=== PATIENT | female | born 1980 | race Caucasian/White ===

== ENCOUNTER → 2021-11-16 | Outpatient (CLI) | payer BC ==
[2021-11-16 11:17] LABS: HEMOGLOBIN 16.9 gm/dl (12.3-15.3); RED BLOOD COUNT 5.1 M/UL (4.00-5.10); WHITE BLOOD COUNT 8.2 K/UL (4.5-11.0)
[2021-11-18 16:27] LABS: BUN/CREATININE RATIO 19 (0-10)
[2021-11-19 08:14] LABS: CHOLESTEROL, TOTAL 216 mg/dL (100-199); HDL CHOLESTEROL 41 mg/dL (>39); LDL CHOLESTEROL CALC 149 mg/dL (0-99); LDL/HDL RATIO 3.6 ratio (0.0-3.2); T. CHOL/HDL RATIO 5.3 ratio (0.0-4.4); TRIGLYCERIDES 144 mg/dL (0-149)
== END ==
LOC: LAB 10:34
PROVIDERS: Family Medicine
DX: R60.9 Edema, unspecified (principal); Z82.49 Family history of ischemic heart disease and other diseases of the circulatory system
CPT/HCPCS: 80053; 80061; 83880; 85025; 93005